=== PATIENT | female | born 1980 | race African-American/Black ===

== ENCOUNTER 2018-03-11 16:54 | Emergency (ER) | payer BC ==
[2018-03-11] MEDS ORDERED: Iopamidol 370 76% 100 ML VIAL ONE (17:10)
--- NOTE | 2018-03-11 18:08 | RAD ---
ACUTE ABDOMINAL SERIES: FRONTAL VIEW CHEST TWO VIEW ABDOMEN 03/11/18 INDICATION: Posttraumatic pain. FINDINGS: There is no lobar consolidation. No free air beneath the hemidiaphragms. The cardiac silhouette is at upper limits of normal in size. There is an intrauterine device overlying the pelvis. The regional o sseous structures are intact. Bowel gas pattern is nonobstructive. IMPRESSION: No definite acute process. POS: [facility]
--- NOTE | 2018-03-11 18:09 | RAD ---
LEFT RIBS THREE VIEWS: 03/11/18 INDICATION: Posttraumatic pain. FINDINGS: There is no displaced left rib fracture identified. IMPRESSION: No acute osseous abnormality of the left ribs visualized. POS: [facility]
--- NOTE | 2018-03-11 18:09 | RAD ---
RIGHT RIB SERIES THREE VIEWS: 03/11/18 INDICATION: Post traumatic pain. FINDINGS: No displaced right rib fractures seen. IMPRESSION: No acute osseous abnormality of the right ribs is identified. POS: [facility]
[2018-03-11 21:49] LABS: Hemoglobin 6.3 g/dL (12.0-16.0); Mean Corpuscular HGB CONC 28.3 g/dL (32.0-36.0); Mean Corpuscular Hemoglobin 15.7 pg (27.0-31.0); Mean Corpuscular Volume 55.3 fL (78.0-98.0); Mean Platelet Volume 10.6 fL (7.4-10.4); Platelet Count 161 thou/uL (130-400); RBC Distribution Width 19.4 % (11.5-14.5)
[2018-03-11 21:58] LABS: BHCG - Serum Negative (NEGATIVE); Pregs Control Background? CLEAR/WHITE (CLR/WHITE); Pregs Control Bar Appear? YES (CONTROL BAR)
[2018-03-11 22:00] LABS: #Basophils 0.1 thou/uL (0.0-0.2); #Eosinphils 0.1 thou/uL (0.0-0.7); #Lymphocytes 2.1 thou/uL (1.20-3.40); #Monocytes 0.6 thou/uL (0.11-0.59); #Neutrophils 4.2 thou/uL (1.40-6.50); %Basophils 1.1 % (0.0-1.0); %Eosinophils 1.3 % (0.0-10.0); %Lymphocytes 29.6 % (21.0-51.0); Anisocytosis SLIGHT = 6-15 cells (100X) (0-5/hpf); Elliptocytes SLIGHT = 2-5 cells (100X) (0-1/hpf); Hypochromia MODERATE=16-30 cells (100X) (0-5/hpf); Large Platelets SLIGHT; MDiff Complete? YES; Microcytosis MODERATE=15-30 cells (100X) (0-5/hpf); PLT Morphology Comment Appears Adequate; Poikilocytosis SLIGHT = 6-15 cells (100X) (0-5/hpf); Tear Drops SLIGHT = 2-5 cells (100X) (0-1/hpf)
[2018-03-11 22:02] LABS: ALT (SGPT) 10 U/L (8-55); AST (SGOT) 17 U/L (5-34); Albumin 3.8 g/dL (3.5-5.0); Alkaline Phosphatase 39 U/L (40-150); Anion Gap 14 mmol/L (10-20); BUN (Urea Nitrogen) 13 mg/dL (7.0-18.7); Bilirubin, Total 0.3 mg/dL (0.2-1.2); Calc. Creatinine Clearance 0 mL/min (70-130); Carbon Dioxide 19 mmol/L (22-29); Chloride 112 mmol/L (98-107); Estimated GFR-MDRD Greater than 90; Globulin 3.4 g/dL (2.4-3.5); Glucose 77 mg/dL (70-105); Lipase 26 U/L (8-78); Potassium 3.9 mmol/L (3.5-5.1); Protein, Total 7.2 g/dL (6.0-8.3); Sodium 141 mmol/L (136-145)
[2018-03-11] MEDS ORDERED: Fentanyl 100 MCG/2 ML VIAL ONE (22:29)
--- NOTE | 2018-03-11 23:08 | CT ---
CT ABDOMEN AND PELVIS WITH CONTRAST 03/11/18 COMPARISON: 07/19/14. INDICATION: Posttraumatic pain. FINDINGS: There is a bowel containing ventral abdominal wall hernia at the low abdomen at and to the left of mi dline. The bowel is incompletely assessed without enteric contrast although there is no significant e vidence for proximal dilatation of bowel to indicate an associated mechanical obstruction. No free ai r or portal vein gas. The liver and spleen are unremarkable. Pancreas reveals no evidence of inflamma tion. No abnormal aneurysmal dilatation of the abdominal aorta. The visualized lung bases demonstrate mild dependent atelectasis. There is an intrauterine device present. No free pelvic fluid. Osseous s tructures are intact. IMPRESSION: Bowel containing hernia of the ventral low abdomen, at and to the left of midline. No associated mech anical obstruction identified within limitations of technique. POS: [facility]
== END 2018-03-11 23:26 | disposition home or self-care (01) ==
LOC: ERS 16:54 → EEVIPCON 16:54 → ERS 23:26
DX: R10.9 Unspecified abdominal pain (principal); E03.9 Hypothyroidism, unspecified; F17.210 Nicotine dependence, cigarettes, uncomplicated; Y04.0XXA Assault by unarmed brawl or fight, initial encounter
CPT/HCPCS: 36415; 74022; 74177; 80053; 83690; 84703; 85025; 96374; J3010

== ENCOUNTER 2019-02-26 13:58 | Outpatient (CLI) | payer BC ==
--- NOTE | 2019-02-26 14:56 | MMO ---
Bilateral MAMMO Bilat Screen [facility]. CLINICAL HISTORY: Patient is 39 years old and is seen for screening. The patient has no family history of breast cancer. The patient has no personal history of cancer. VIEWS: The views performed were: bilateral craniocaudal with tomosynthesis and bilateral mediolateral oblique with tomosynthesis. This study has been interpreted with the assistance of computer-aided detection. MAMMOGRAM FINDINGS: There are scattered fibroglandular densities. There are benign appearing calcifications seen in the right breast. There are no suspicious masses, suspicious calcifications, or new areas of architectural distortion. IMPRESSION: THERE IS NO MAMMOGRAPHIC EVIDENCE OF MALIGNANCY. A ROUTINE FOLLOW-UP MAMMOGRAM IN 1 YEAR IS RECOMMENDED. THE RESULTS OF THIS EXAM WERE SENT TO THE PATIENT. ACR BI-RADS Category 2 - Benign finding MAMMOGRAPHY NOTE: 1. A negative mammogram report should not delay a biopsy if a dominant of clinically suspicious mass is present. 2. Approximately 10% to 15% of breast cancers are not detected by mammography. 3. Adenosis and dense breasts may obscure an underlying neoplasm. Reported by: JODEE DMUONT MD Electonically Signed: [id number]
== END 2019-02-26 13:59 | disposition home or self-care (01) ==
LOC: BICMAMMO 13:58
PROVIDERS: ATTEND Physician Assistant
DX: Z12.31 Encounter for screening mammogram for malignant neoplasm of breast (principal)
CPT/HCPCS: 77063; 77067

== ENCOUNTER 2021-06-05 08:11 | Outpatient (CLI) | payer BC | END 2021-06-05 08:12 | disposition home or self-care (01) | LOC: BICMAMMO 08:11 | PROVIDERS: ATTEND Physician Assistant | DX: Z12.31 Encounter for screening mammogram for malignant neoplasm of breast (principal) | CPT/HCPCS: 77063; 77067 ==

== ENCOUNTER 2022-07-04 13:13 | Emergency (ER) | payer BC | END 2022-07-04 15:08 | disposition home or self-care (01) | LOC: ERS 13:13 | DX: S09.90XA Unspecified injury of head, initial encounter (principal); E03.9 Hypothyroidism, unspecified; F17.210 Nicotine dependence, cigarettes, uncomplicated; Y04.8XXA Assault by other bodily force, initial encounter | CPT/HCPCS: 70450 ==

== ENCOUNTER 2023-12-20 06:28 | Day surgery (SDC) | payer BC ==
[2023-12-14 10:18] VITALS: BMI 43.4
[2023-12-20] MEDS ORDERED: Rocuronium Bromide 10 MG/ML (10ML VIAL) ONE (06:34)
[2023-12-20] MEDS ORDERED: Lidocaine 2% PF 5 ML VIAL ONE (06:34)
[2023-12-20] MEDS ORDERED: PROPOFOL 20 ML ONE (06:34)
[2023-12-20] MEDS ORDERED: fentaNYL PF 100 MCG/2 ML SYRINGE ONE (06:34)
[2023-12-20] MEDS ORDERED: SUGAMMADEX SODIUM 200 MG/2 ML VIAL ONE (06:34)
[2023-12-20] MEDS ORDERED: Ketorolac Tromethamine 30 MG (1 mL) VIAL ONE (06:35)
[2023-12-20] MEDS ORDERED: Chlorhexidine Gluconate 15 ML UDCUP SSP ONE ×2 (06:38→08:05)
[2023-12-20] MEDS ORDERED: EPINEPHrine 1 MG/ML VIAL ONE (06:38)
[2023-12-20] MEDS ORDERED: Hydrocortisone 1% Cream 30 GM TUBE ONE (06:38)
[2023-12-20] MEDS ORDERED: Lidocaine 1% (PF) 30 ML VIAL ONE (06:39)
[2023-12-20] MEDS ORDERED: Midazolam HCl 2 mg/2 ml Vial ONE (06:57)
[2023-12-20] MEDS ORDERED: Dexamethasone 4 mg/ml Vial ONE (07:01)
[2023-12-20] MEDS ORDERED: Clindamycin/D5W 900 mg/50 ml Premix Bag ONE (07:06)
[2023-12-20] MEDS ORDERED: Ondansetron PF 4 MG/2 ML Vial ONE (07:39)
[2023-12-20] MEDS ORDERED: Bupivacaine 0.25% HCL 30 ML VIAL ONE (07:47)
[2023-12-20] MEDS ORDERED: MINERAL OIL/WHITE PETROLATUM 3.5 GM TUBE ONE (08:49)
[2023-12-20] MEDS ORDERED: Fentanyl 250 MCG/5 ML VIAL ONE (09:07)
[2023-12-20] MEDS ORDERED: HYDROcodone/Acetaminophen 5/325 mg Tablet ONE (11:06)
== END 2023-12-20 11:42 | disposition home or self-care (01) ==
LOC: SDC 06:28
PROVIDERS: ATTEND Dentist Oral and Maxillofacial Surgery
DX: D74.9 Methemoglobinemia, unspecified (principal); K09.0 Developmental odontogenic cysts
CPT/HCPCS: 36416; 88305; C1713; J0171; J0665; J1100; J1885; J2250; J2405; J2704; J3010; J3490